=== PATIENT | female | born 1965 | race Caucasian/White ===

== ENCOUNTER 2016-12-04 20:10 | Emergency (ER) | payer OTHER ==
[~2016-12-04] VITALS: Ht 162.6 cm; Wt 77.1 kg
[~2016-12-04 20:10] MED LIST: CALCIUM600 MG PO; CHLORTABS4 MG PO; COL-RITE100 MG PO; CYCLOBENZAPRINE10 MG PO; CYMBALTA30 MG PO; DAYPRO600 MG PO; DIAZEPAM5 MG PO; ESTRADIOL0.5 MG PO; FENOFIBRATE160 MG PO; LEVOTHYROXINE100 MCG PO; LEXAPRO10 MG PO; MIRAPEX0.5 MG PO; OMEPRAZOLE20 MG PO; ONDANSETRON ODT8 MG; ONDANSETRON ODT8 MG PO; OXYCODON-ACETA1 EAC2 PO; REQUIP0.5 MG PO; SIMVASTATIN20 MG PO; SPIRONOLACTONE50 MG PO; TOVIAZ8 MG PO; TRAMADOL HCL50 MG PO; VICODIN HP 10-1 EAC1 PO
[2016-12-04] MEDS ORDERED: DICLOFENAC SODI75 MG PO (21:49)
== END 2016-12-04 22:11 | disposition home or self-care (01) ==
LOC: ED 20:10
PROC: 2W3FX1Z Immobilization of Left Hand using Splint (ICD-10-PCS; principal; 2016-12-04)
DX: S66.912A Strain of unspecified muscle, fascia and tendon at wrist and hand level, left hand, initial encounter (principal); E03.9 Hypothyroidism, unspecified; E11.9 Type 2 diabetes mellitus without complications; E78.00 Pure hypercholesterolemia, unspecified; F17.200 Nicotine dependence, unspecified, uncomplicated; Z88.0 Allergy status to penicillin; Z79.899 Other long term (current) drug therapy; Z90.710 Acquired absence of both cervix and uterus; Z79.01 Long term (current) use of anticoagulants; X50.9XXA Other and unspecified overexertion or strenuous movements or postures, initial encounter
CPT/HCPCS: 29125; 73110; 99283

== ENCOUNTER 2017-05-06 21:34 | Emergency (ER) | payer OTHER ==
[~2017-05-06] VITALS: Ht 162.6 cm; Wt 75.8 kg
[~2017-05-06 21:34] MED LIST changes: +DICLOFENAC SODI75 MG PO
[2017-05-06] MEDS ORDERED: CYCLOBENZAPRINE10 MG PO (22:23)
== END 2017-05-06 22:52 | disposition home or self-care (01) ==
LOC: ED 21:34
DX: M54.5 Low back pain (principal); G89.29 Other chronic pain; E03.9 Hypothyroidism, unspecified; E78.00 Pure hypercholesterolemia, unspecified; E11.9 Type 2 diabetes mellitus without complications; Z90.710 Acquired absence of both cervix and uterus; F17.200 Nicotine dependence, unspecified, uncomplicated; Z98.890 Other specified postprocedural states; Z88.0 Allergy status to penicillin; Z79.899 Other long term (current) drug therapy
CPT/HCPCS: 99283

== ENCOUNTER 2018-08-11 12:09 | Emergency (ER) | payer OTHER ==
[~2018-08-11] VITALS: Ht 162.6 cm; Wt 75.8 kg
[~2018-08-11 12:09] MED LIST changes: +CIPRO250 MG PO; +PROTONIX40 MG PO
--- OUTSIDE RECORDS SUMMARY | 2018-08-11 12:12 | XMS ---
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 Janene has no Care Guidelines for this patient. Katelynn VISIT COUNT (12 MO.) 2 [facility] TOTAL 2 NOTE: Visits indicate total known visits. ED/UCC VISIT TRACKING (12 MO.) 08/11/2018 12:09 [facility] [place] TYPE: Emergency COMPLAINT: - ABD PAIN 08/30/2017 16:[address] [facility] [place] TYPE: Emergency COMPLAINT: - VOMITING/ABD PAIN DIAGNOSES: - Nausea with vomiting, unspecified - Hypothyroidism, unspecified - Urinary tract infection, site not specified - Nicotine dependence, unspecified, uncomplicated - Gastritis, unspecified, without bleeding - Type 2 diabetes mellitus without complications - Other retirement (current) drug therapy - Allergy status to penicillin INPATIENT VISIT TRACKING (12 MO.) No inpatient visits to display in this time frame [id number]
[2018-08-11] MEDS ORDERED: PANTOPRAZOLE SO40 MG PO (14:04)
[2018-08-11] MEDS ORDERED: ZOFRAN4 MG SL (14:04)
== END 2018-08-11 14:20 | disposition home or self-care (01) ==
LOC: ED 12:09
DX: R10.13 Epigastric pain (principal); E03.9 Hypothyroidism, unspecified; E11.9 Type 2 diabetes mellitus without complications; F17.200 Nicotine dependence, unspecified, uncomplicated; Z90.710 Acquired absence of both cervix and uterus; Z90.49 Acquired absence of other specified parts of digestive tract; Z88.0 Allergy status to penicillin; Z79.899 Other long term (current) drug therapy
CPT/HCPCS: 80053; 81001; 83690; 84478; 85025; 96361; 96374; 96375; 99284-25; C9113; J1170; J1200; J2405; J2765; J7030

== ENCOUNTER 2019-02-18 14:13 | Emergency (ER) | payer OTHER ==
[~2019-02-18] VITALS: Ht 162.6 cm; Wt 84.8 kg
[~2019-02-18 14:13] MED LIST changes: +NORCO 5-325 TA1 EACH PO; +PANTOPRAZOLE SO40 MG PO; +PERCOCET 5-3251 EACH PO; +VITAMIN D50000 UNI1 PO; +ZOFRAN4 MG SL
--- OUTSIDE RECORDS SUMMARY | 2019-02-18 14:16 | XMS ---
PreManage Notification: MORE SOTO Security Biofuels Manager Events No recent Security Events currently on file CRITERIA MET - PDMP CARE PROVIDERS ANAHI HSU Physician Minute Clerk 08/12/2018-Current PHONE: Unknown Janene has no Care Guidelines for this patient. [facility]12 MO[facility] T[facility] 5 NOTE: Visits indicate total known visits. ED/C VISIT TRACKING (12 MO.) 02/18/2019 14:14 [facility] Haji TYPE: Emergency COMPLAINT: - OD 12/31/2018 18:26 [facility] TYPE: Emergency DIAGNOSES: - Arthrodesis status - Low back pain - Other chronic pain 12/31/2018 18:12 [facility] TYPE: Emergency DIAGNOSES: - Other chronic pain - Back Pain - Encopresis - Arthrodesis status - Low back pain - Fall 12/18/2018 11:49 [facility] [place] TYPE: Emergency COMPLAINT: - FALL, BACK PAIN DIAGNOSES: - Fall (on) (from) unspecified stairs and steps, initial encounter - Type 2 diabetes mellitus without complications - Other terminal press operator (current) drug therapy - Anesthesia of skin - Allergy status to penicillin - Nicotine dependence, unspecified, uncomplicated - Contusion of lower back and pelvis, initial encounter - Hypothyroidism, unspecified 08/11/2018 12:09 [facility] [place] TYPE: Emergency COMPLAINT: - ABD PAIN DIAGNOSES: - Nicotine dependence, unspecified, uncomplicated - Other penitentiary (current) drug therapy - Hypothyroidism, unspecified - Acquired absence of both cervix and uterus - Type 2 diabetes mellitus without complications - Epigastric pain - Allergy status to penicillin - Acquired absence of other specified parts of digestive tract INPATIENT VISIT TRACKING (12 MO.) No inpatient visits to display in this time frame [email or web address]
--- NOTE | 2019-02-18 19:44 | EKG ---
[facility] [address] [place], [place] [address] Signed Normal sinus rhythm Normal ECG When compared with ECG of 16-NOV-2016 11:16, No significant change was found Confirmed by THOMAS ACOSTA DO ([id number]) on 02/18/2019 7:43:54 PM Electronically Signed By: THOMAS ACOSTA DO 02/18/19 1944 PATIENT NAME: MORE SOTO Electrocardiogram DATE OF : 69 PHYSICIAN: THOMAS ACOSTA DO REPORT #: [id number] REPORT IS CONFIDENTIAL AND NOT TO BE RELEASED WITHOUT AUTHORIZATION
== END 2019-02-18 19:30 | disposition home or self-care (01) ==
LOC: ED 14:13
DX: T39.1X2A Poisoning by 4-Aminophenol derivatives, intentional self-harm, initial encounter (principal); E03.9 Hypothyroidism, unspecified; E11.9 Type 2 diabetes mellitus without complications; F17.200 Nicotine dependence, unspecified, uncomplicated; Z88.0 Allergy status to penicillin; Z79.899 Other long term (current) drug therapy
CPT/HCPCS: 80053; 80176; 81001; 84443; 84703; 85025; 93005; 93010; 99285-25; G0480

== ENCOUNTER 2019-05-13 00:44 | Emergency (ER) | payer OTHER ==
[~2019-05-13] VITALS: Ht 162.6 cm; Wt 83.5 kg
--- OUTSIDE RECORDS SUMMARY | 2019-05-13 00:48 | XMS ---
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 Care History Medical/Surgical 02/19/2019 [facility] - [place] REFERRAL MADE- DUE TO PATIENT ED VISIT HX AND [place] INSURANCE. E.D. VISIT COUNT (12 MO.) 2 [facility] 4 [facility] TOTAL 6 NOTE: Visits indicate total known visits. ED/C VISIT TRACKING (12 MO.) 05/13/2019 00:45 [facility] TYPE: Emergency COMPLAINT: - R EAR PAIN, THROAT, HEADACHE 02/18/2019 14:14 [facility] Haji TYPE: Emergency COMPLAINT: - OD DIAGNOSES: - Hypothyroidism, unspecified - 1 Type 2 diabetes mellitus without complications - Nicotine dependence, unspecified, uncomplicated - Other intermediate card tender (current) drug therapy - Allergy status to penicillin - Suicidal ideations - Poisoning by 4-Aminophenol derivatives, self-harm, init [facility] DIAGNOSES: - Arthrodesis status - Low back pain - Other chronic pain 12/31/2018 18:12 [facility]: [facility] DIAGNOSES: - Other chronic pain - Back Pain - Encopresis - Arthrodesis status - Low back pain - Fall 12/18/2018 11:49 [facility] Haji TYPE: Emergency COMPLAINT: - FALL, BACK PAIN DIAGNOSES: - Fall (on) (from) unspecified stairs and steps, init encntr - 1 Type 2 diabetes mellitus without complications - Other intermediate card tender (current) drug therapy - Anesthesia of skin - Allergy status to penicillin - Nicotine dependence, unspecified, uncomplicated - Contusion of lower back and pelvis, initial encounter - Hypothyroidism, unspecified 08/11/2018 12:09 [facility] TYPE: Emergency COMPLAINT: - ABD PAIN DIAGNOSES: - Nicotine dependence, unspecified, uncomplicated - Other intermediate card tender (current) drug therapy - Hypothyroidism, unspecified - Acquired absence of both cervix and uterus - 1 Type 2 diabetes mellitus without complications - Epigastric pain - Allergy status to penicillin - Acquired absence of other specified parts of digestive tract INPATIENT VISIT TRACKING (12 MO.) No inpatient visits to display in this time frame [id number]
== END 2019-05-13 01:26 | disposition home or self-care (01) ==
LOC: ED 00:44
DX: H66.91 Otitis media, unspecified, right ear (principal); F32.9 Major depressive disorder, single episode, unspecified; E03.9 Hypothyroidism, unspecified; E11.9 Type 2 diabetes mellitus without complications; F17.200 Nicotine dependence, unspecified, uncomplicated; Z88.0 Allergy status to penicillin; Z79.899 Other long term (current) drug therapy
CPT/HCPCS: 99283

== ENCOUNTER 2019-08-16 15:49 | Emergency (ER) | payer OTHER ==
[~2019-08-16] VITALS: Ht 162.6 cm; Wt 83.5 kg
--- OUTSIDE RECORDS SUMMARY | 2019-08-16 15:52 | XMS ---
PreManage Notification: MORE SOTO Security Gin Pole Operator Events No recent Security Events currently on file CRITERIA MET - [facility] - Has Care Guidelines - PDMP CARE PROVIDERS ANAHI HSU Physician Delivery Manager 08/12/2018-Current PHONE: Unknown Janene has no Care Guidelines for this patient. Care History Medical/Surgical 02/19/2019 [facility] - [place] REFERRAL MADE- DUE TO PATIENT ED VISIT HX AND [place] INSURANCE. E.D. VISIT COUNT (12 MO.) 2 [facility] 4 [facility] TOTAL 6 NOTE: Visits indicate total known visits. ED/UCC VISIT TRACKING (12 MO.) 08/16/2019 15:50 [facility] [place] TYPE: Emergency COMPLAINT: - BACK PAIN, NON INJ 05/13/2019 00:45 [facility] [place] TYPE: Emergency COMPLAINT: - R EAR PAIN, THROAT, HEADACHE DIAGNOSES: - Other long term acute care registered nurse (current) drug therapy - Otitis media, unspecified, right ear - Hypothyroidism, unspecified - Cough - Major depressive disorder, single episode, unspecified - Allergy status to penicillin - Nicotine dependence, unspecified, uncomplicated - 1 Type 2 diabetes mellitus without complications 02/18/2019 14:14 [facility] [place] TYPE: Emergency COMPLAINT: - OD DIAGNOSES: - Hypothyroidism, unspecified - 1 Type 2 diabetes mellitus without complications - Nicotine dependence, unspecified, uncomplicated - Other longterm (current) drug therapy - Allergy status to penicillin - Suicidal ideations - Poisoning by 4-Aminophenol derivatives, self-harm, init 12/31/2018 18:26 [facility] TYPE: Emergency DIAGNOSES: - Arthrodesis status - Low back pain - Other chronic pain 12/31/2018 18:12 [facility] TYPE: Emergency DIAGNOSES: - Other chronic pain - Back Pain - Encopresis - Arthrodesis status - Low back pain - Fall 12/18/2018 11:[address] [facility] [place] TYPE: Emergency COMPLAINT: - FALL, BACK PAIN DIAGNOSES: - Fall (on) (from) unspecified stairs and steps, init encntr - 1 Type 2 diabetes mellitus without complications - Other long term acute care registered nurse (current) drug therapy - Anesthesia of skin - Allergy status to penicillin - Nicotine dependence, unspecified, uncomplicated - Contusion of lower back and pelvis, initial encounter - Hypothyroidism, unspecified INPATIENT VISIT TRACKING (12 MO.) No inpatient visits to display in this time frame [id number]
[2019-08-16] MEDS ORDERED: NORCO 5-325 TA1 EACH (17:01)
[2019-08-16] MEDS ORDERED: LIDODERM1 EACH TOP (18:15)
== END 2019-08-16 18:36 | disposition home or self-care (01) ==
LOC: ED 15:49
DX: M54.6 Pain in thoracic spine (principal); E11.9 Type 2 diabetes mellitus without complications; F17.200 Nicotine dependence, unspecified, uncomplicated; Z88.0 Allergy status to penicillin; Z79.899 Other long term (current) drug therapy
CPT/HCPCS: 96372; 99283-25; J1170

== ENCOUNTER 2020-01-26 19:26 | Emergency (ER) | payer OTHER ==
[~2020-01-26] VITALS: Ht 162.6 cm; Wt 77.1 kg
[~2020-01-26 19:26] MED LIST changes: +LIDODERM1 EACH TOP; +NORCO 5-325 TA1 EACH
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
[2020-01-26] MEDS ORDERED: ROBAXIN-750750 MG PO (22:07)
[2020-01-26] MEDS ORDERED: CELEBREX50 MG PO (22:07)
== END 2020-01-27 01:21 | disposition home or self-care (01) ==
LOC: ED 19:26
DX: S33.6XXA Sprain of sacroiliac joint, initial encounter (principal); E03.9 Hypothyroidism, unspecified; F32.9 Major depressive disorder, single episode, unspecified; E11.9 Type 2 diabetes mellitus without complications; F17.200 Nicotine dependence, unspecified, uncomplicated; Z88.0 Allergy status to penicillin; Z79.899 Other long term (current) drug therapy; X50.1XXA Overexertion from prolonged static or awkward postures, initial encounter
CPT/HCPCS: 72100; 96372; 99283-25; J1885

== ENCOUNTER 2020-01-29 17:54 | Emergency (ER) | payer OTHER ==
[~2020-01-29] VITALS: Ht 162.6 cm; Wt 77.1 kg
[~2020-01-29 17:54] MED LIST changes: +CELEBREX50 MG PO; +ROBAXIN-750750 MG PO
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
[2020-01-29] MEDS ORDERED: MEDROL4 M1 PO (19:22)
== END 2020-01-29 19:33 | disposition home or self-care (01) ==
LOC: ED 17:54
DX: M54.42 Lumbago with sciatica, left side (principal); E03.9 Hypothyroidism, unspecified; F32.9 Major depressive disorder, single episode, unspecified; E11.9 Type 2 diabetes mellitus without complications; F17.200 Nicotine dependence, unspecified, uncomplicated; Z88.0 Allergy status to penicillin; Z79.899 Other long term (current) drug therapy
CPT/HCPCS: 99283

== ENCOUNTER 2020-03-11 17:08 | Emergency (ER) | payer OTHER ==
[~2020-03-11] VITALS: Ht 162.6 cm; Wt 77.1 kg
[~2020-03-11 17:08] MED LIST changes: +MEDROL4 M1 PO
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
[2020-03-11] MEDS ORDERED: ZOFRAN4 MG PO (21:35)
== END 2020-03-11 21:51 | disposition home or self-care (01) ==
LOC: ED 17:08
DX: B34.9 Viral infection, unspecified (principal); Z20.828 Contact with and (suspected) exposure to other viral communicable diseases; F32.9 Major depressive disorder, single episode, unspecified; E03.9 Hypothyroidism, unspecified; E11.9 Type 2 diabetes mellitus without complications; F17.200 Nicotine dependence, unspecified, uncomplicated; Z88.0 Allergy status to penicillin; Z79.899 Other long term (current) drug therapy; Z79.52 Long term (current) use of systemic steroids; Z79.891 Long term (current) use of opiate analgesic
CPT/HCPCS: 99283; A9270; C9803

== ENCOUNTER 2020-10-02 14:22 | Emergency (ER) | payer OTHER ==
[~2020-10-02] VITALS: Ht 162.6 cm; Wt 77.1 kg
[~2020-10-02 14:22] MED LIST changes: +ZOFRAN4 MG PO
[2020-10-02] MEDS ORDERED: DICLOFENAC SODI75 MG PO (14:43)
[2020-10-02] MEDS ORDERED: HYDROCODON-ACE1 EA10 PO (16:22)
== END 2020-10-02 16:31 | disposition home or self-care (01) ==
LOC: ED 14:22
DX: L98.9 Disorder of the skin and subcutaneous tissue, unspecified (principal); E03.9 Hypothyroidism, unspecified; E11.9 Type 2 diabetes mellitus without complications; F17.200 Nicotine dependence, unspecified, uncomplicated; Z88.0 Allergy status to penicillin; Z79.899 Other long term (current) drug therapy
CPT/HCPCS: 36415; 76882; 80053; 85025; 85651; 86140; 99284-25

== ENCOUNTER 2021-11-08 12:21 | Emergency (ER) | payer OTHER ==
[~2021-11-08] VITALS: Ht 162.6 cm; Wt 83.0 kg
[~2021-11-08 12:21] MED LIST changes: +HYDROCODON-ACE1 EA10 PO
--- OUTSIDE RECORDS SUMMARY | 2021-11-08 12:24 | XMS ---
PreManage Notification: MORE SOTO Security Cosmetic Sales Advisor Events No recent Security Events currently on file CRITERIA MET - [facility] - Has Care Guidelines CARE PROVIDERS ANAHI HSU Physician Hvac Commercial Salesperson 08/12/2018-Current PHONE: Unknown Guidelines Source: [facility] Guidelines Date: 10/05/2020 Pain Management: patient has an alias, More Yost.\T\nbsp; We got a call from the local pharmacy stating she was getting #96 tabs of [place] 10/325mg every 28 days from a separate provider.\T\nbsp; The ER had the [place] RX discarded by the pharmacy.\T\ nbsp; Patient is changing names, we only have her in our system as More Soto Care History Medical/Surgical 10/06/2020 [facility] Pain Management: patient has an aliasMore.\T\nbsp; We got a call from the local pharmacy stating she was getting #96 tabs of [place] 10/325mg every 28 days from a separate provider.\T\nbsp; The ER had the [place] RX discarded by the pharmacy.\T\nbsp; Patient is changing names, we only have her in our system as More Sommersmiki These are guidelines and the provider should exercise clinical judgment when providing care. E.D. VISIT COUNT (12 MO.) 1 [employer] 1 BELLE LunaAniakGali Toro TOTAL 2 NOTE: Visits indicate total known visits. ED/UCC VISIT TRACKING (12 MO.) 11/08/2021 12:22 [facility] [place] TYPE: Emergency COMPLAINT: - R WRIST PAIN 01/18/2021 14:26 [employer] [facility] TYPE: Emergency DIAGNOSES: - Nasal Congestion - Headache (Adult - New Onset Or New Symptoms) - Contact with and (suspected) exposure to covid-19 - *cough, exposure to covid - Acute upper respiratory infection, unspecified INPATIENT VISIT TRACKING (12 MO.) No inpatient visits to display in this time frame [email or web address]
[2021-11-08] MEDS ORDERED: METFORMIN HCL500 MG PO (12:56)
[2021-11-08] MEDS ORDERED: PREDNISONE20 MG PO (15:50)
== END 2021-11-08 16:05 | disposition home or self-care (01) ==
LOC: ED 12:21
DX: M25.531 Pain in right wrist (principal); M10.9 Gout, unspecified; E03.9 Hypothyroidism, unspecified; E11.9 Type 2 diabetes mellitus without complications; F17.200 Nicotine dependence, unspecified, uncomplicated; Z88.0 Allergy status to penicillin; Z79.899 Other long term (current) drug therapy; Z79.84 Long term (current) use of oral hypoglycemic drugs
CPT/HCPCS: 73110; 99283-25

== ENCOUNTER 2022-01-23 10:44 | Emergency (ER) | payer OTHER ==
[~2022-01-23] VITALS: Ht 162.6 cm; Wt 78.9 kg
[~2022-01-23 10:44] MED LIST changes: +METFORMIN HCL500 MG PO; +PREDNISONE20 MG PO
--- OUTSIDE RECORDS SUMMARY | 2022-01-23 10:52 | XMS ---
PreManage Notification: MORE SOTO Security Home Health Care Social Worker Events No recent Security Events currently on file CRITERIA MET - [facility] - Has Care Guidelines CARE PROVIDERS ANAHI HSU Physician Machine Spreader 08/12/2018-Current PHONE: Unknown Guidelines Source: [facility] Guidelines Date: 10/05/2020 Pain Management: patient has an alias, More Yost.\T\nbsp; We got a call from the local pharmacy stating she was getting #96 tabs of [place] 10/325mg every 28 days from a separate provider.\T\nbsp; The ER had the [place] RX discarded by the pharmacy.\T\ nbsp; Patient is changing names, we only have her in our system as More Soto Care History Medical/Surgical 10/06/2020 [facility] Pain Management: patient has an aliasMore.\T\nbsp; We got a call from the local pharmacy stating she was getting #96 tabs of [place] 10/325mg every 28 days from a separate provider.\T\nbsp; The ER had the [place] RX discarded by the pharmacy.\T\nbsp; Patient is changing names, we only have her in our system as More Sommersmiki These are guidelines and the provider should exercise clinical judgment when providing care. E.D. VISIT COUNT (12 MO.) 2 BEL[facility] Arenas TOTAL 2 NOTE: Visits indicate total known visits. ED/UCC VISIT TRACKING (12 MO.) 01/23/2022 10:45 [facility] [place] TYPE: Emergency COMPLAINT: - LBP 11/08/2021 12:22 [facility] [place] TYPE: Emergency COMPLAINT: - R WRIST PAIN DIAGNOSES: - Gout, unspecified - Type 2 diabetes mellitus without complications - Pain in right wrist - Allergy status to penicillin - tank terminal gauger (current) use of oral hypoglycemic drugs - Other local company intermodal truck driver (current) drug therapy - Hypothyroidism, unspecified - Nicotine dependence, unspecified, uncomplicated INPATIENT VISIT TRACKING (12 MO.) No inpatient visits to display in this time frame [email or web address]
[2022-01-23] MEDS ORDERED: HYDROCODON-ACE1 EAC8 PO (13:07)
== END 2022-01-23 13:20 | disposition home or self-care (01) ==
LOC: ED 10:44
DX: S39.012A Strain of muscle, fascia and tendon of lower back, initial encounter (principal); E03.9 Hypothyroidism, unspecified; E11.9 Type 2 diabetes mellitus without complications; F17.200 Nicotine dependence, unspecified, uncomplicated; Z98.1 Arthrodesis status; Z88.0 Allergy status to penicillin; Z79.899 Other long term (current) drug therapy; V43.92XA Unspecified car occupant injured in collision with other type car in traffic accident, initial encounter; Z79.84 Long term (current) use of oral hypoglycemic drugs
CPT/HCPCS: 72100; A9270; A9270-GY

== ENCOUNTER 2024-10-03 15:57 | Emergency (ER) | payer OTHER ==
[~2024-10-03] VITALS: Ht 162.6 cm; Wt 75.2 kg
[~2024-10-03 15:57] MED LIST changes: +ENDOCET 5-3251 EACH PO; +GABAPENTIN300 MG PO; +HYDROCODON-ACE1 EAC8 PO; +METHYLPREDNISOLO4 M1 PO; +NAPROXEN500 MG PO; +TROSPIUM CHLORI60 MG PO
[2024-10-03] MEDS ORDERED: HYDROmorphone HCL 2 MG/ML VIAL IM ONE (16:45)
[2024-10-03] MEDS ORDERED: KETOROLAC TROMETHAMINE 30 MG/ML VIAL IM ONE (16:45)
[2024-10-03] MEDS ORDERED: KETOROLAC TROMETHAMINE 30 MG/ML VIAL IV ONE (16:45)
[2024-10-03 18:00] VITALS: BP 148/94
[2024-10-03] MEDS ORDERED: METHOCARBAMOL500 MG PO (18:08)
== END 2024-10-03 18:11 | disposition home or self-care (01) ==
LOC: ED 15:57
DX: S39.012A Strain of muscle, fascia and tendon of lower back, initial encounter (principal); E11.9 Type 2 diabetes mellitus without complications; F17.200 Nicotine dependence, unspecified, uncomplicated; W01.0XXA Fall on same level from slipping, tripping and stumbling without subsequent striking against object, initial encounter
CPT/HCPCS: 72100; 96372; 99283-25; J1171; J1885